=== PATIENT | male | born 1980 | race African-American/Black ===

== ENCOUNTER 2018-03-30 06:00 | Emergency (ER) | payer MEDICARE, MEDICAID ==
[~2018-03-30] VITALS: Ht 170.2 cm; Wt 54.0 kg
[2018-03-30 06:00] VITALS: BP 132/77; PULSE 90; RESP 16; TEMP 99.5; O2SAT 99
[2018-03-30] MEDS ORDERED: AMOXICILLIN 875 MG TAB PO ONE (06:30)
[2018-03-30] MEDS ORDERED: oxyCODONE/ACETAMINOPHEN 5 MG/325 MG TAB PO ONE (06:30)
[2018-03-30] MEDS ORDERED: AMOX875T PO (06:48)
[2018-03-30] MEDS ORDERED: IBUP1TAB7 PO (06:48)
--- NOTE | 2018-03-30 06:49 | PD ---
HPI Chief Complaint: Oral / Dental Pain or Problem Time Seen by Provider: 06:15 Travel History International Travel<30 days: No Contact w/Intl Traveler<30days: No Traveled to known affect area: No History of Present Illness HPI Patient is a 38-year-old male presented to the emergency department for evaluation of a dental abscess. Patient states it started 2 days ago, it is aching, throbbing and he has had swelling to the right lower jaw. He denies any fever, chills, headache. Symptom onset was gradual, symptoms are moderate in nature. There are no alleviating factors. Pain is exacerbated with touching tubing. [facility] Past Medical History Diminished Hearing: No Hypertension: Yes Immunizations Current: Yes Past Surgical History Surgical History: No Previous Surgery Social History Alcohol Use: No Tobacco Use: Yes Substance Use: No Allergies-Medications (Allergen,Severity, Reaction): Coded Allergies: No Known Allergies (Unverified , 03/30/18) Review of Systems Except as stated in HPI: all other systems reviewed are Neg HENT: Positive: Dental Difficulties, Other (Facial swelling) Physical Exam Narrative GENERAL: Well-developed, well-nourished, alert -[place] male. Presenting in no acute distress. SKIN: Warm and dry. Edema and fluctuance to the right lower jaw, no erythema noted. MOUTH: Mucous membranes moist, no lesions, tongue appears normal. Gingival edema to the right lower jaw adjacent to the second bicuspid, fluctuance noted. HEAD: Atraumatic. Normocephalic. EYES: Pupils equal and round. No scleral icterus. No injection or drainage. ENT: No nasal bleeding or discharge. Mucous membranes pink and moist. NECK: Trachea midline. No JVD. CARDIOVASCULAR: Regular rate and rhythm. RESPIRATORY: No accessory muscle use. Clear to auscultation. Breath sounds equal bilaterally. GASTROINTESTINAL: Abdomen soft, non-tender, nondistended. Hepatic and splenic margins not palpable. MUSCULOSKELETAL: Extremities without clubbing, cyanosis, or edema. No obvious deformities. NEUROLOGICAL: Awake and alert. No obvious cranial nerve deficits. Motor grossly within normal limits. Five out of 5 muscle strength in the arms and legs. Normal speech. PSYCHIATRIC: Appropriate mood and affect; insight and judgment normal. Data Data Last Documented VS Vital Signs Date Time Temp Pulse Resp B/P (MAP) Pulse Ox O2 Delivery O2 Flow Rate FiO2 03/30/18 06:00 99.5 90 16 132/77 (95) 99 Orders Orders Amoxicillin (Trimox) (03/30/18 06:30) Oxycodone-Acetamin 5-325 Mg (Percocet (03/30/18 06:30) MDM Medical Decision Making Medical Screen Exam Complete: Yes Emergency Medical Condition: Yes Interpretation(s) Vital Signs Date Time Temp Pulse Resp B/P (MAP) Pulse Ox O2 Delivery O2 Flow Rate FiO2 03/30/18 06:00 99.5 90 16 132/77 (95) 99 Differential Diagnosis Dental abscess versus dental caries versus dentalgia versus other Narrative Course Patient is a 38-year-old male presenting to emerge department for evaluation of a dental abscess. Patient's vital signs are stable. Exam appears consistent with a dental abscess. Please see procedure report. Patient tolerated procedure well. He will be given first dose of amoxicillin now as well as Percocet for pain. Patient's mother states that he has an appointment with a dentist this week. Patient was encouraged to complete full course of antibiotics, return to emergency department for any new or worsening symptoms. He was encouraged to apply warm compress or gargle with warm salt water. Patient mother verbalized understanding of instructions. Patient stable for discharge. Procedures Procedure Narrative After the risks and benefits were discussed the following procedure was performed: INCISION AND DRAINAGE OF ABSCESS: The area was prepped and was sterilely draped. A subcutaneous wheal of 1% lidocaine with a total number 0.5 mL was used to anesthetize the area. The area was properly anesthetized. A number 11 scalpel was used to make a 0.5-cm incision across the area of the abscess. The abscess was drained an irrigated with normal saline. Diagnosis Primary Impression: Dental abscess Referrals: Dentist 3 days Patient Instructions: Dental Abscess (ED), General Instructions, Narcotic given in the ED Additional Instructions: Follow-up with a dentist in 3-7 days Complete full course of antibiotics as prescribed He may apply warm compress to affected area or swish warm salt water Return to emergency department for any new or worsening symptoms Med/Other Pt SpecificInfo: Prescription(s) given Scripts Ibuprofen (Ibuprofen) 800 Mg Tab 800 MG PO Q6HR Y for PAIN, #40 TAB 0 Refills Prov: Gabrielle Davis 03/30/18 Amoxicillin (Amoxicillin) 875 Mg Tab 875 MG PO BID for Infection for 10 Days, #20 TAB 0 Refills Prov: Gabrielle Davis 03/30/18 Disposition: 01 DISCHARGE HOME Condition: Stable Gabrielle Davis March 30, 2018 06:49
== END 2018-03-30 07:21 | disposition home or self-care (01) ==
LOC: NEPD 06:00
DX: K04.7 Periapical abscess without sinus (principal); I10 Essential (primary) hypertension; Z72.0 Tobacco use
CPT/HCPCS: 41800